=== PATIENT | male | born 1985 | race Caucasian/White ===

== ENCOUNTER → 2023-05-29 10:16 | Outpatient (BNVA) | payer SELFPAY | PROVIDERS: Visit Provider Family Medicine | DX: R03.0 Elevated blood-pressure reading, without diagnosis of hypertension (principal) | CPT/HCPCS: 80053; 80061; 83036; 84439; 84443; 85025 ==

== ENCOUNTER 2023-10-17 13:00 | Outpatient (CLI) | payer OTHER, SELFPAY | END 2023-10-17 13:01 | disposition home or self-care (01) | LOC: SLEEP 10-18 07:49 | PROVIDERS: PCP Family Medicine; Visit Provider Family Medicine | DX: G47.33 Obstructive sleep apnea (adult) (pediatric) (principal) | CPT/HCPCS: G0399 ==

== ENCOUNTER 2023-12-15 17:41 | Outpatient (CLI) | payer OTHER, SELFPAY ==
[2023-12-15 18:00] LABS: Sperm Immotility 10 % (50-60); Sperm Non-Progressive Motility 30 % (5-10); Sperm Progressive Motility 60 % (31-34); Viscosity Semen Droplets
[2023-12-15 18:01] LABS: Pathology Referral Yes
== END 2023-12-15 17:42 | disposition home or self-care (01) ==
LOC: LAB 17:45
PROVIDERS: PCP Family Medicine; Visit Provider Family Medicine
DX: Z31.69 Encounter for other general counseling and advice on procreation (principal)
CPT/HCPCS: 80503; 89320

== ENCOUNTER → 2024-06-27 14:56 | Outpatient (BNVA) | payer OTHER, SELFPAY | PROVIDERS: PCP Family Medicine; Visit Provider Family Medicine | DX: I10 Essential (primary) hypertension (principal); E66.9 Obesity, unspecified | CPT/HCPCS: 80053; 80061; 83036; 85025 ==